=== PATIENT | male | born 1985 | race Caucasian/White ===

== ENCOUNTER → 2018-03-19 14:47 | Outpatient (CLI) | payer OTHER, SELFPAY ==
--- NOTE | 2018-03-19 | DI.CT.S_ITS ---
PROCEDURE: CT ABDOMEN WO CON INDICATIONS: 32-year-old male with increased abdominal pain, and possible hernia. TECHNIQUE: After the administration of oral contrast, 5 mm thick sections acquired from the diaphragms to the iliac crests. 5 mm coronal and sagittal reformats were then performed. For radiation dose reduction, the following was used: automated exposure control, adjustment of mA and/or kV according to patient size. COMPARISON: [facility], CT, ABDOMEN/PELVIS WITH CONTRAST, 07/04/2010, 10:54. FINDINGS: Skin marker denotes the site of clinical concern. Image quality: Excellent. Lung bases: Lung bases are clear. Heart size is normal. Solid organs: Liver is normal in size, with mild diffuse fatty infiltration. Gallbladder wall thickness is normal. Pancreas is normal in contours. Spleen is normal in size. No adrenal nodules. Both kidneys are normal in size, without hydronephrosis or nephrolithiasis. Peritoneum and bowel: Bowel loops demonstrate normal wall thickness and caliber. No free fluid or air. Nodes and vessels: No retroperitoneal or mesenteric adenopathy by size criteria. Aorta and inferior vena cava are normal in size. Bones: No suspicious bony lesions. No vertebral body compression fractures. Miscellaneous: No ventral hernias at the site of clinical concern in the right lower quadrant abdominal wall. Small fat-containing periumbilical ventral hernia has slightly increased in size since 2009. IMPRESSION: 1. No imaging explanation for right lower quadrant abdominal wall pain. 2. Nearby fat-containing periumbilical ventral hernia has slightly enlarged. 3. Mild diffuse fatty infiltration of the liver. Dictated by: John Lincoln M.D. on 03/19/2018 at 15:44 Approved by: John Lincoln M.D. on 03/19/2018 at 15:49
== END ==
PROVIDERS: Family Provider Orthopaedic Surgery; PCP Family Medicine; Visit Provider Family Medicine
DX: R10.9 Unspecified abdominal pain (principal); K43.9 Ventral hernia without obstruction or gangrene
CPT/HCPCS: 74150

== ENCOUNTER 2018-06-03 09:01 | Day surgery (SDC) | payer OTHER, BC, SELFPAY ==
[2018-05-19 14:23] VITALS: BMI 35.1
[2018-06-03] VITALS (12 sets, daily range): BP systolic 110–127; BP diastolic 67–89; PULSE 68–80; RESP 12–18; TEMP 36.2–36.8; O2SAT 9–100; BMI 35.1
--- NOTE | 2018-06-03 | PATH_ITS ---
[facility] Accession Number: [id number] . 01 Material submitted: . FATTY MASS ABDOMINAL WALL . 02 Diagnosis: Mass, Abdominal Wall: Lipoma, negative for atypia. [facility]/06/07/2018 . 02 Electronically signed: . Jerson Riley MD, Pathologist NPI- [id number] . 01 Gross description: . Received one formalin-filled container, labeled with the patient's name and labeled fatty mass abdominal are two yellow-carlton, rough, irregularly shaped portions of soft tissue which aggregate to 4.0 x 3.0 x 1.5 cm. Inked blue. Four communications representative sections are submitted in two cassettes. ([facility] [place][id number]) /MRV . 02 Pathologist provided ICD-10: D17.1 . 02 CPT . 389424 Performed at: 01 [facility] [address], [place], [place] [id number] MD Lazaro Nguyen MD Phone: [phone] Performed at: [address] [facility] [address] [place], [place] [id number] MD Brandon Padilla MD Phone: [phone]
--- NOTE | 2018-06-03 11:50 | SUR.PREOP ---
blood sugar with finger stick was [address] bullock
--- NOTE | 2018-06-03 13:30 | PM.HP.1 ---
History of Present Illness Date Patient Seen: 06/03/18 Time Patient Seen: 13:30 Chief complaint: [id number] REPAIR HERNIA REMOVE MASS Narrative: Patient is a 32-year-old who has an umbilical hernia that is tender and he would like to have it repaired Patient History Medical History Tension headache (Acute) Umbilical hernia (Acute) ADHD (attention deficit hyperactivity disorder) (Chronic) Bloating (Chronic 2014) Chronic back pain (Chronic 2010) Chronic headaches (Chronic 2015) Frequent urination (Chronic) Migraines (Chronic) Prostatitis (Chronic 2015) Tinnitus (Chronic) Chicken pox (Resolved) MRSA infection (Resolved) Surgical History Anesthesia (Resolved) Status post knee surgery (Resolved 04/2011) Status post knee surgery (Resolved 07/2013) Status post knee surgery (Resolved 2015) Family & Social History Family History: Reviewed 06/03/18 by Rafael Borrego MD Social History: household members spouse,children Tobacco & Substance use: Smoking Status Never smoker alcohol intake never Meds Home Medications Medication Instructions Recorded Confirmed Type epinephrine 0.3 mg IM SEE INSTRUCTIONS #4 syr 03/05/17 04/28/18 Rx acyclovir 800 mg tablet 800 mg PO Q6H #30 tab 04/28/18 06/03/18 Rx tamsulosin 0.4 mg capsule 0.4 mg PO DAILY #90 cap 04/28/18 06/03/18 Rx Allergies Allergy/AdvReac Type Severity Reaction Status Date / Time bee venom protein (honey bee) Allergy Severe anapylactic Verified 06/03/18 11:33 [BEE VENOM PROTEIN (HONEY BEE)] Review of Systems Review of Systems All systems reviewed & are unremarkable except as noted in HPI and below Exam Vital Signs (past 8 hours): - 06/03/18 11:35 Temperature 97.2 F L Pulse Rate 69 Respiratory Rate 16 Blood Pressure 127/83 Pulse Oximetry 100 Oxygen Delivery Method Room Air Narrative Exam Narrative: Operative little overweight no apparent distress lungs are clear to auscultation no rales or rhonchi heart regular rate and rhythm no murmur gallop abdomen is protuberant soft nontender except when I attempt to reduce his umbilical hernia he does have some tenderness. No redness. Alert and oriented x3. Assessment & Plan Plan: Assessment/Plan Narrative: Patient with umbilical hernia for repair. I suspect the defect is quite small and I think it unlikely I will be able to use mesh but I talked to him about it. Risks of bleeding infection and recurrence were discussed. Restrictions after the procedure discussed. All questions answered.
[2018-06-03] MEDS: LACTATED RINGERS 1,000 ML 42 ML IV (13:46)
[2018-06-03] MEDS: CEFAZOLIN 2 GM/100 ML FROZ.PIGGY IV (14:10)
--- NOTE | 2018-06-03 14:27 | SUR.OPER ---
Supine on padded OR bed, head on pillow, arms secured on padded arm boards at <90 degrees abduction, legs uncrossed, safety belt at thigh, tape over blanket over lower legs.
[2018-06-03] MEDS: BUPIVACAINE 0.5% (PF) VIAL 30 ML INJ (14:35)
--- NOTE | 2018-06-03 15:06 | PM.OP.1 ---
Operative Date/Time/Diagnoses Date of procedure: 06/03/18 Time of procedure: 15:06 Pre-op diagnosis: Umbilical hernia reducible without incarceration or strangulation. Abdominal wall mass subcutaneous right lower abdomen Post-op diagnosis: same Procedure & Clinicians Procedure: Repair of hernia at the umbilicus. Excision of mass. Mass measured 1 cm x 1 cm. Same procedure as scheduled: Yes Indications: Symptomatic hernia and mass Surgeon: Rafael Melendez Yes if Unassisted: Yes Anesthesia Type: General Operative Notes Findings: Very small defect. Mass appeared to be fatty Closure Type: primary Specimen(s): other (Mass) Implants & Drains: None Estimated Blood Loss (mL): 10 Blood products transfused: none Procedure in detail: Patient was placed supine on the operating room table underwent general endotracheal anesthesia. He was prepped and draped in usual fashion. Local anesthetic was infiltrated and a curvilinear incision made beneath the umbilicus. It was carried down level of fascia. The fascia was cleared circumferentially of the hernia sac which was removed. It contained preperitoneal fat. A single [id number] 0 Tycron suture was used to close the defect. Subcu was reapproximated with 3 0 Polysorb and skin closed running for Polysorb subcuticular stitches and Steri-Strips. The defect was felt to be too small to place mesh under without expanding it. Attention was turned to the small mass in the right lower abdomen which had been marked preoperatively. Transverse incision was made lying over it and it was carried down to the subcu. All the subcu tissues were removed in that region. Hemostasis was achieved with cautery. The skin was reapproximated with 4 0 Polysorb. This Steri-Strips were applied. Dressings were applied. The patient was awakened taken recovery room good condition. Complications: none Condition: stable Disposition: PACU Plan for aftercare: Follow up with the office
== END 2018-06-03 16:38 | disposition home or self-care (01) ==
PROVIDERS: Family Provider Orthopaedic Surgery; PCP Family Medicine; Visit Provider Specialist
PROC: (CPT 49585; principal; 2018-06-03 10:15)
DX: K42.9 Umbilical hernia without obstruction or gangrene (principal); D17.1 Benign lipomatous neoplasm of skin and subcutaneous tissue of trunk
CPT/HCPCS: 49585; 22902; J0690; J1100; J1170; J2405; J2704

== ENCOUNTER → 2018-08-18 08:36 | Outpatient (CLI) | payer OTHER, BC, SELFPAY ==
--- NOTE | 2018-08-18 | DI.CT.S_ITS ---
PROCEDURE: CT ABDOMEN WO CON INDICATIONS: ABDOMINAL PAIN TECHNIQUE: After the administration of oral contrast, 5 mm thick sections acquired from the diaphragms to the iliac crests. 5 mm coronal and sagittal reformats were then performed. For radiation dose reduction, the following was used: automated exposure control, adjustment of mA and/or kV according to patient size. COMPARISON: [facility], CT, CT ABDOMEN WO CON, 03/19/2018, 14:50. FINDINGS: Image quality: Excellent. Lung bases: Lung bases are clear. Heart size is normal. Solid organs: Liver is normal in size. Gallbladder grossly unremarkable. Pancreas is normal in contours. Spleen is normal in size. No adrenal nodules. Both kidneys are normal in size, without hydronephrosis or nephrolithiasis. Peritoneum and bowel: Bowel loops demonstrate normal wall thickness and caliber. No free fluid or air. Nodes and vessels: No retroperitoneal or mesenteric adenopathy by size criteria. Aorta and inferior vena cava are normal in size. Bones: No suspicious bony lesions. No vertebral body compression fractures. No definite recurrent umbilical hernia is identified. There is mild stranding in the right paramedian anterior abdominal subcutaneous fat image 67 series 2, nonspecific. IMPRESSION: No recurrent hernia identified. Mild stranding in the right paramedian subcutaneous fat of the anterior abdominal wall in keeping with nonspecific inflammation. Please correlate clinically Dictated by: Herson Wahl M.D. on 08/18/2018 at 10:36 Approved by: Herson Wahl M.D. on 08/18/2018 at 10:40
== END ==
PROVIDERS: PCP Family Medicine; Visit Provider Family Medicine
DX: R10.9 Unspecified abdominal pain (principal)
CPT/HCPCS: 74150

== ENCOUNTER → 2018-12-09 15:38 | Outpatient (CLI) | payer OTHER, SELFPAY ==
--- NOTE | 2018-12-09 | DI.MRI.S_ITS ---
PROCEDURE: MR KNEE RT WO CON INDICATIONS: RIGHT KNEE PAIN TECHNIQUE: Noncontrast sagittal PD fast spin echo and T2 fast spin echo with fat saturation, sagittal 3-D FLASH with fat saturation; coronal T1 spin echo and PD fast spin echo with fat saturation, and axial PD fast spin echo with fat saturation through the knee. COMPARISON: [facility], MR, KNEE WITH CONTRAST, 10/10/2016, 14:19. [facility], CR, KNEE SERIES RT, 01/12/2017, 14:18. FINDINGS: Image quality: Excellent. Menisci: There is large horizontal tear involving posterior horn and body of the medial meniscus. There is a cluster of parameniscal cysts adjacent to the medial meniscus. There is discoid lateral meniscus which is intact. The meniscal root ligaments appear intact. Cruciate ligaments: The anterior and posterior cruciate ligaments appear intact. Medial structures: The medial collateral ligament appears intact. The posterior oblique ligament, semimembranosus tendon insertions, oblique popliteal ligament, and meniscocapsular junction appear intact. Visualized portions of the pes anserinus tendons appear normal. No abnormal bursal fluid. Lateral structures: The lateral collateral ligament, long and short heads of the biceps femoris tendon appear intact. The popliteus tendon appears normal; the popliteofibular ligament appears intact. The posterosuperior and anteroinferior popliteomeniscal fascicles appear intact. The arcuate and fabellofibular ligaments appear intact, on either side of the lateral inferior geniculate artery. Iliotibial band appears normal. Anterior structures: The quadriceps and patellar tendons appear intact. Patellar alignment is normal. No femoral trochlear dysplasia or ventral trochlear prominence. No edema in the infrapatellar fat pad. Bones and cartilage: No bone marrow contusions or fractures. There is mild cartilage thinning and fibrillation of the medial femorotibial compartment. Joint space: There is physiologic knee joint fluid. No Clemente's cyst. Normal appearing synovial plicae are incidentally noted. IMPRESSION: 1. Large horizontal tear of the posterior horn and body of the medial meniscus with a cluster of parameniscal cysts in the medial aspect of the knee joint. 2. Discoid meniscus. 3. Mild cartilage thinning and fibrillation of the medial femorotibial compartment. Dictated by: Jeromy Banegas M.D. on 12/09/2018 at 16:27 Approved by: Jeromy Banegas M.D. on 12/09/2018 at 17:46
== END ==
PROVIDERS: PCP Family Medicine; Visit Provider Family Medicine
DX: M25.561 Pain in right knee (principal); S83.241A Other tear of medial meniscus, current injury, right knee, initial encounter
CPT/HCPCS: 73721

== ENCOUNTER → 2019-01-07 10:45 | Outpatient (CLI) | payer OTHER, SELFPAY | PROVIDERS: PCP Family Medicine; Visit Provider Physician Assistant | DX: R68.89 Other general symptoms and signs (principal) | CPT/HCPCS: 87400 ==

== ENCOUNTER → 2019-08-16 16:45 | Outpatient (CLI) | payer OTHER, SELFPAY ==
--- NOTE | 2019-08-16 | DI.RAD.S_ITS ---
PROCEDURE: XR KNEE RT 1TO2V INDICATIONS: MJL NARROWING TECHNIQUE: 2 views of the knee were acquired. COMPARISON: [facility], [facility]LA, XR KNEE STANDING BI, 08/16/2019, 17:04. [facility], [facility], KNEE 3V LEFT, 11/20/2010, 21:51. FINDINGS: Bones: No fractures or dislocations. No suspicious bony lesions. Mild right knee joint degeneration. Soft tissues: No joint effusion. No suspicious soft tissue calcifications. IMPRESSION: Mild right knee joint degeneration. Dictated by: Herson Wahl M.D. on 08/16/2019 at 17:37 Approved by: Herson Wahl M.D. on 08/16/2019 at 17:38
--- NOTE | 2019-08-16 | DI.RAD.S_ITS ---
PROCEDURE: XR KNEE STANDING BI INDICATIONS: MJL NARROWING TECHNIQUE: 2 views of the right knee, and 2 views of the left knee. COMPARISON: [facility], , KNEE 3V LEFT, 11/20/2010, 21:51. FINDINGS: Bones: No acute fractures or dislocations. Mild bilateral medial joint space narrowing IMPRESSION: Mild bilateral knee joint degeneration Dictated by: Herson Wahl M.D. on 08/16/2019 at 17:35 Approved by: Herson Wahl M.D. on 08/16/2019 at 17:37
== END ==
PROVIDERS: PCP Family Medicine
DX: M17.0 Bilateral primary osteoarthritis of knee (principal)
CPT/HCPCS: 73560; 73565

== ENCOUNTER → 2019-10-04 10:34 | Outpatient (CLI) | payer OTHER, SELFPAY ==
--- NOTE | 2019-10-04 | DI.MRI.S_ITS ---
PROCEDURE: MR KNEE RT W CON INDICATIONS: Medial meniscus tear TECHNIQUE: After the administration of 50 mL of dilute intra-articular Gadolinium contrast, sagittal T1 spin echo with fat saturation and PD fast spin echo with fat saturation, coronal T1 spin echo with and without fat saturation, coronal T2 fast spin echo with fat saturation, axial PD fast spin echo with fat saturation through the knee. COMPARISON: [facility], MR, KNEE WITH CONTRAST, 10/10/2016, 14:19. FINDINGS: Image quality: Diagnostic. Menisci: There is an inferior flap tear in the body and posterior horn of the medial meniscus involving the inferior articular surface. There is slight associated peripheral extrusion into the medial gutter inferiorly. There is also a horizontally oriented longitudinal component in the posterior horn involving the inferior articular surface with intrasubstance extension into the meniscal root ligament without rupture. A small radial tear is also demonstrated along the free edge in the body and posterior horn. The lateral meniscus appears intact. Cruciate ligaments: The anterior and posterior cruciate ligaments appear intact. Medial structures: The medial collateral ligament appears intact. The semimembranosus tendon insertions and meniscocapsular junction appear intact. Visualized portions of the pes anserinus tendons appear intact without associated bursal fluid collections. Lateral structures: The lateral collateral ligament, long and short heads of the biceps femoris tendon appear intact. The popliteus tendon appears intact. Iliotibial band appears normal. Anterior structures: The quadriceps and patellar tendons appear intact. There is mild tendinopathy in the proximal patellar tendon. Patellar alignment is normal. No femoral trochlear dysplasia or ventral trochlear prominence. No edema in the infrapatellar fat pad. Bone and cartilage: No bone marrow contusions or fractures. There is mild to moderate cartilage thinning within the medial compartment with chondral fissuring peripherally associated with subchondral edema. In the lateral compartment articular cartilage appears preserved in thickness. In the patellofemoral compartment, there is mild cartilage thinning with chondral fissuring inferiorly. Joint space: No Clemente's cyst. Normal appearing synovial plicae are incidentally noted. No intra-articular bodies. IMPRESSION: 1. Complex tearing of the medial meniscus involving the body and posterior horn as described. 2. Cartilage degeneration within the medial and patellofemoral compartments as described. Dictated by: Lazaro Durham M.D. on 10/04/2019 at 13:53 Approved by: Lazaro Durham M.D. on 10/04/2019 at 14:05
--- NOTE | 2019-10-04 | DI.RAD.S_ITS ---
PROCEDURE: FL KNEE INJECTION MR/CT RT INDICATIONS: Medial meniscus tear TECHNIQUE: The indications, alternatives, benefits, risks, and complications of the procedure were explained to the patient. Written informed consent was obtained and placed in the chart. The knee was examined fluoroscopically, and a site chosen for knee joint injection. The skin was prepped and draped in a sterile fashion, and 1% Lidocaine infiltrated from the skin down to the articular surface. A hypodermic needle was then introduced into the joint and iodinated contrast media was instilled to confirm the intra-articular needle tip placement. This was followed by approximately 50 mL dilute solution of a gadolinium containing MR contrast agent. The needle was removed and a bandage was applied. An Obdulio wrap was then applied around the knee joint to keep the contrast from collecting in the suprapatellar recess. The patient experienced no complications throughout the procedure and left the fluoroscopic suite in no apparent distress. FINDINGS: Single fluoroscopic spot image demonstrates intra-articular location to injected iodinated contrast. IMPRESSION: Successful fluoroscopically guided administration of dilute Gadolinium solution into the knee joint for MR arthrogram. Dictated by: Jeromy Banegas M.D. on 10/04/2019 at 12:15 Approved by: Jeromy Banegas M.D. on 10/04/2019 at 12:17
== END ==
PROVIDERS: PCP Family Medicine; Visit Provider Orthopaedic Surgery
DX: S83.231A Complex tear of medial meniscus, current injury, right knee, initial encounter (principal); X58.XXXA Exposure to other specified factors, initial encounter
CPT/HCPCS: 27369; 73722; 77002

== ENCOUNTER → 2020-07-19 08:06 | Outpatient (CLI) | payer OTHER, SELFPAY ==
--- NOTE | 2020-07-19 | DI.RAD.S_ITS ---
PROCEDURE: FL KNEE INJECTION MR/CT RT INDICATIONS: bucket-handle tear COMPARISON: [facility], MR, MR KNEE RT W CON, 10/04/2019, 11:20. TECHNIQUE: The indications, alternatives, benefits, risks, and complications of the procedure were explained to the patient. Written informed consent was obtained and placed in the chart. The knee was examined fluoroscopically, and a site chosen for knee joint injection. The skin was prepped and draped in a sterile fashion, and 1% Lidocaine infiltrated from the skin down to the articular surface. A hypodermic needle was then introduced into the joint and iodinated contrast media was instilled to confirm the intra-articular needle tip placement. This was followed by approximately 50 mL dilute solution of a gadolinium containing MR contrast agent. The needle was removed and a bandage was applied. An Obdulio wrap was then applied around the knee joint to keep the contrast from collecting in the suprapatellar recess. The patient experienced no complications throughout the procedure and left the fluoroscopic suite in no apparent distress. FINDINGS: Single fluoroscopic spot image demonstrates intra-articular location to injected iodinated contrast. IMPRESSION: Successful fluoroscopically guided administration of dilute Gadolinium solution into the knee joint for MR arthrogram. Dictated by: Jeromy Banegas M.D. on 07/19/2020 at 11:18 Approved by: Jeromy Banegas M.D. on 07/19/2020 at 11:18
--- NOTE | 2020-07-19 | DI.MRI.S_ITS ---
PROCEDURE: MR KNEE RT W CON INDICATIONS: BUCKET-HANDLE TEAR TECHNIQUE: After the administration of 50 mL of dilute intra-articular Gadolinium contrast, sagittal T1 spin echo with fat saturation and PD fast spin echo with fat saturation, coronal T1 spin echo with and without fat saturation, coronal T2 fast spin echo with fat saturation, axial PD fast spin echo with fat saturation through the knee. COMPARISON: [facility], MR, MR KNEE RT W CON, 10/04/2019, 11:20. FINDINGS: Image quality: Excellent. Menisci: There is suggestion of prior partial medial meniscectomy with slightly truncated appearance of the medial meniscus. No definite recurrent tear is seen on the current study within medial meniscal remanent. Lateral meniscus is intact. The meniscal root ligaments appear intact. Cruciate ligaments: The anterior and posterior cruciate ligaments appear intact. Medial structures: The medial collateral ligament appears intact. The posterior oblique ligament, semimembranosus tendon insertions, oblique popliteal ligament, and meniscocapsular junction appear intact. Visualized portions of the pes anserinus tendons appear normal. No abnormal bursal fluid. Lateral structures: The lateral collateral ligament, long and short heads of the biceps femoris tendon appear intact. The popliteus tendon appears normal; the popliteofibular ligament appears intact. The posterosuperior and anteroinferior popliteomeniscal fascicles appear intact. The arcuate and fabellofibular ligaments appear intact around the lateral inferior geniculate artery. Iliotibial band appears normal. Anterior structures: The quadriceps and patellar tendons appear intact. Patellar alignment is normal. No femoral trochlear dysplasia or ventral trochlear prominence. No edema in the infrapatellar fat pad. Bone and cartilage: There is extensive marrow edema involving weight-bearing portion of medial tibial plateau with internal linear hypointense signal concerning for subchondral insufficiency fracture. Mild edema in the adjacent posterior weight-bearing portion of lateral femoral condyle is also seen concerning for contusion. Articulating cartilages in lateral femoral tibial compartment and patellofemoral compartment are grossly intact. Joint space: No Clemente's cyst. Normal appearing synovial plicae are incidentally noted. No intra-articular bodies. IMPRESSION: 1. Interval development of likely subchondral insufficiency fracture involving weight-bearing portion of medial tibial plateau. Mild bony contusion is seen involving posterior weight-bearing portion of medial femoral condyle. No other area of marrow signal abnormality. 2. Suggestion of chronic medial meniscal tear versus prior partial meniscectomy. Overall medial meniscal appearance is not significantly changed from prior study without evidence of recurrent tear. Lateral meniscus is intact. 3. Cruciate ligaments are intact. Dictated by: Darron Cason M.D. on 07/19/2020 at 11:11 Approved by: Darron Cason M.D. on 07/19/2020 at 13:24
== END ==
PROVIDERS: PCP Family Medicine; Referring Provider Orthopaedic Surgery; Visit Provider Orthopaedic Surgery
DX: S83.211D Bucket-handle tear of medial meniscus, current injury, right knee, subsequent encounter (principal); Q68.6 Discoid meniscus
CPT/HCPCS: 27369; 73722; 77002

== ENCOUNTER → 2020-09-05 09:24 | Outpatient (CLI) | payer BC, SELFPAY ==
[2020-09-05 11:11] LABS: Add Manual Diff / Slide Review NO; Basophils Absolute Auto 0 /uL (0-100); Basophils Percent Auto 0.6 % (0-2); Eosinophils Absolute Auto 200 /uL (0-450); Eosinophils Percent Auto 2.4 % (2-4); Hematocrit 47.9 % (41-53); Hemoglobin 16.2 g/dL (13.5-17.5); Lymphocytes Absolute Auto 2400 /uL (1100-4500); Lymphocytes Percent Auto 30.3 % (25-40); Mean Corpuscular HGB Conc 33.7 % (30-36); Mean Corpuscular Hemoglobin 27.9 PG (26-34); Mean Corpuscular Volume 82.7 fL (80-100); Monocytes Absolute Auto 400 /uL (0-900); Monocytes Percent Auto 5.3 % (3-14); Neutrophils Absolute Auto 5000 /uL (1500-7000); Neutrophils Percent Auto 61.4 % (50-75); Platelet Count 287 X10^3/uL (150-400); Red Cell Distribution Width 13.1 % (11.6-14.8); White Blood Cell Count 8.1 X10^3/uL (4.5-11.0)
[2020-09-05 11:25] LABS: Alanine Aminotransferase 41 IU/L (<50); Albumin 4.6 g/dL (3.5-5.0); Albumin Globulin Ratio 1.4 (1.0-2.8); Alkaline Phosphatase 66 U/L (38-126); Aspartate Aminotransferase 37 IU/L (17-59); BUN Creatinine Ratio 28.1 (6-22); Bilirubin Total 0.4 mg/dL (0.2-1.3); Blood Urea Nitrogen 25 mg/dL (9-20); Calcium 9.4 mg/dL (8.4-10.2); Carbon Dioxide 23 mmol/L (22-32); Chloride 105 mmol/L (98-107); Cholesterol 254 mg/dL (140-199); Estimated Glomerular Filt Rate > 60.0 mL/min (>60); Globulin 3.4 g/dL (1.7-4.1); Glucose 96 mg/dL (70-100); HDL Cholesterol 45 mg/dL (40-60); HEMOLYSIS < 15 (0-50); LDL Cholesterol Calculated 177 mg/dL (<100); Lactate Dehydrogenase 409 U/L (313-618); Potassium 3.8 mmol/L (3.4-5.1); Sodium 139 mmol/L (137-145); Triglycerides 158 mg/dL (35-150)
[2020-09-05 11:26] LABS: C-Reactive Protein Quant < 0.5 mg/dL (<1.0)
[2020-09-05 11:45] LABS: Erythrocyte Sedimentation Rate 1 MM/HR (0-15)
[2020-09-05 12:21] LABS: Thyroid Stimulating Hormone 4.41 uIU/mL (0.47-4.68)
== END ==
PROVIDERS: PCP Family Medicine; Referring Provider Family Medicine; Visit Provider Family Medicine
DX: I10 Essential (primary) hypertension (principal); M25.569 Pain in unspecified knee; M84.30XA Stress fracture, unspecified site, initial encounter for fracture
CPT/HCPCS: 36415; 80053; 80061; 83615; 84443; 85025; 85651; 86140

== ENCOUNTER → 2021-04-12 07:42 | Outpatient (CLI) | payer OTHER, SELFPAY ==
--- NOTE | 2021-04-12 | DI.MRI.S_ITS ---
PROCEDURE: MR KNEE RT W CON INDICATIONS: Displaced bicondylar fracture of right tibia, subs TECHNIQUE: After the administration of 50 mL of dilute intra-articular Gadolinium contrast, sagittal T1 spin echo with fat saturation and PD fast spin echo with fat saturation, coronal T1 spin echo with and without fat saturation, coronal T2 fast spin echo with fat saturation, axial PD fast spin echo with fat saturation through the knee. COMPARISON: [facility], MR, MR KNEE RT W CON, 07/19/2020, 8:50. FINDINGS: Image quality: Excellent. Menisci: There is complex tearing of the medial meniscus redemonstrated including irregular tearing along the inferior articular surface in the body as well as fraying along the superior articular surface. Within the posterior horn, there is a horizontally oriented longitudinal tear involving the inferior articular surface. There is also fraying and irregular tearing along the superior articular surface in the posterior horn. An associated parameniscal cyst is demonstrated in the posterosuperior aspect of the medial meniscus measuring up to approximately 0.6 cm. Posterior to the meniscal root ligament, there is also a lobulated cystic structure measuring up to 1.0 cm redemonstrated which may represent a parameniscal cyst, ganglion cyst, or loculated joint recess. The lateral meniscus appears intact. The meniscal root ligaments appear intact. Cruciate ligaments: The anterior and posterior cruciate ligaments appear intact. Medial structures: The medial collateral ligament appears intact. The semimembranosus tendon insertions and meniscocapsular junction appear intact. Visualized portions of the pes anserinus tendons appear intact without associated bursal fluid collections. Lateral structures: The lateral collateral ligament, long and short heads of the biceps femoris tendon appear intact. The popliteus tendon appears intact. Iliotibial band appears normal. Anterior structures: The quadriceps and patellar tendons appear intact. Patellar alignment is normal. No femoral trochlear dysplasia or ventral trochlear prominence. No edema in the infrapatellar fat pad. Bone and cartilage: No acute bone marrow contusions or fractures. There is decreased bone marrow edema within the medial proximal tibia consistent with healing of the previously visualized impaction fracture. No residual fracture line visualized. There is mild to moderate cartilage thinning within the medial compartment with associated mild chondral fissuring and mild subchondral edema along the medial tibial plateau. The articular cartilage appears preserved in thickness within the lateral compartment. There is mild cartilage thinning in the patellofemoral compartment with mild superficial chondral irregularity. Joint space: No Clemente's cyst. Normal appearing synovial plicae are incidentally noted. No definite intra-articular bodies. There is nondependent gas demonstrated within the joint space. IMPRESSION: 1. Complex tearing of the medial meniscus redemonstrated involving the body and posterior horn with a new associated parameniscal cyst. 2. Interval healing of the medial tibial fracture and bone contusion seen on the prior study with minimal residual marrow edema. 3. Mild chondral degeneration in the medial compartment. Dictated by: Lazaro Durham M.D. on 04/12/2021 at 12:05 Approved by: Lazaro Durham M.D. on 04/12/2021 at 12:28
--- NOTE | 2021-04-12 | DI.RAD.S_ITS ---
PROCEDURE: FL KNEE INJECTION MR/CT RT INDICATIONS: Displaced bicondylar fracture of right tibia, subs COMPARISON: [facility], , [place] KNEE INJECTION MR/CT RT, 07/19/2020, 8:39. [facility], [place] KNEE INJECTION MR/CT RT, 10/04/2019, 11:08. TECHNIQUE: The indications, alternatives, benefits, risks, and complications of the procedure were explained to the patient. Written informed consent was obtained and placed in the chart. The knee was examined fluoroscopically, and a site chosen for knee joint injection. The skin was prepped and draped in a sterile fashion, and 1% Lidocaine infiltrated from the skin down to the articular surface. A hypodermic needle was then introduced into the joint and iodinated contrast media was instilled to confirm the intra-articular needle tip placement. This was followed by approximately 50 mL dilute solution of a gadolinium containing MR contrast agent. The needle was removed and a bandage was applied. An Obdulio wrap was then applied around the knee joint to keep the contrast from collecting in the suprapatellar recess. The patient experienced no complications throughout the procedure and left the fluoroscopic suite in no apparent distress. FINDINGS: Single fluoroscopic spot image demonstrates intra-articular location to injected iodinated contrast. IMPRESSION: Successful fluoroscopically guided administration of dilute Gadolinium solution into the knee joint for MR arthrogram. Dictated by: Matt Babcock M.D. on 04/12/2021 at 14:23 Approved by: Matt Babcock M.D. on 04/12/2021 at 14:23
== END ==
PROVIDERS: PCP Family Medicine; Referring Provider Orthopaedic Surgery; Visit Provider Orthopaedic Surgery
DX: S82.141D Displaced bicondylar fracture of right tibia, subsequent encounter for closed fracture with routine healing (principal); S83.241A Other tear of medial meniscus, current injury, right knee, initial encounter
CPT/HCPCS: 27369; 73722; 77002

== ENCOUNTER → 2021-04-19 09:31 | Outpatient (CLI) | payer BC, SELFPAY ==
--- NOTE | 2021-04-19 | DI.RAD.S_ITS ---
PROCEDURE: XR HAND RT MIN 3V INDICATIONS: pain after trauma TECHNIQUE: 3 views of the hand(s) acquired. COMPARISON: None. FINDINGS: Bones: No fractures or dislocations. Carpal bones are normally aligned. No suspicious bony lesions. Soft tissues: No suspicious soft tissue calcifications. IMPRESSION: No trauma found. Dictated by: Matt Babcock M.D. on 04/19/2021 at 10:27 Approved by: Matt Babcock M.D. on 04/19/2021 at 10:27
== END ==
PROVIDERS: PCP Family Medicine; Referring Provider Family Medicine; Visit Provider Family Medicine
DX: M79.641 Pain in right hand (principal)
CPT/HCPCS: 73130

== ENCOUNTER → 2021-08-01 13:10 | Outpatient (ROUT) | payer BC, SELFPAY ==
[2021-08-01 13:58] LABS: COVID19 -Nasal RAPID Negative (Negative)
== END ==
PROVIDERS: PCP Family Medicine; Visit Provider Family Medicine
DX: Z20.822 Contact with and (suspected) exposure to COVID-19 (principal)
CPT/HCPCS: 87635

== ENCOUNTER → 2021-09-26 12:03 | Outpatient (ROUT) | payer BC, SELFPAY ==
[2021-09-26 13:05] LABS: COVID19 -Nasal RAPID Negative (Negative)
== END ==
PROVIDERS: PCP Family Medicine; Visit Provider Family Medicine
DX: Z20.822 Contact with and (suspected) exposure to COVID-19 (principal)
CPT/HCPCS: 87635

== ENCOUNTER → 2021-10-18 14:36 | Outpatient (CLI) | payer BC, SELFPAY | PROVIDERS: PCP Family Medicine; Referring Provider Family Medicine; Visit Provider Family Medicine | DX: Z01.84 Encounter for antibody response examination (principal) | CPT/HCPCS: 36415; 86769 ==

== ENCOUNTER → 2022-05-22 13:17 | Outpatient (CLI) | payer OTHER, SELFPAY ==
--- NOTE | 2022-05-22 | DI.CT.S_ITS ---
PROCEDURE: CT KNEE RIGHT WITHOUT CON INDICATIONS: Post surgical status right knee TECHNIQUE: Noncontrast 1-1.5 mm axial sections acquired from the mid-patella to the proximal tibia, with coronal and sagittal reformats. COMPARISON: Right knee MRI 04/12/2021 and 07/19/2020. FINDINGS: Image quality: Excellent. Bones: There is suggestion of prior proximal tibial shaft osteotomy with graft material seen at osteotomy site and fixation hardware in place. Alignment of knee is anatomic. No evidence of hardware loosening or failure. No acute fracture or dislocation is seen. Moderate medial femoral tibial compartment osteoarthritic changes are seen with joint space narrowing, subchondral sclerosis and marginal osteophyte formation. Mild lateral femoral tibial compartment and patellofemoral compartment osteoarthritic changes also seen. No suspicious intraosseous lesion. Soft tissues: No significant joint effusion is seen. No intra-articular loose bodies. No abnormal soft tissue calcifications. Distal quadriceps tendon and patellar tendon are grossly intact. IMPRESSION: 1. Post osteotomy changes in proximal tibial shaft with surgical hardware in place. Right knee alignment is anatomic. No acute fracture or dislocation. No gross hardware complication. 2. [id number] tricompartmental osteoarthritis more prominent in medial femoral tibial compartment. 3. No significant joint effusion. No abnormal soft tissue calcifications. Dictated by: Darron Cason M.D. on 05/22/2022 at 15:01 Approved by: Darron Csaon M.D. on 05/22/2022 at 15:04
== END ==
PROVIDERS: PCP Family Medicine; Referring Provider Orthopaedic Surgery; Visit Provider Orthopaedic Surgery
DX: Z98.890 Other specified postprocedural states (principal); M17.11 Unilateral primary osteoarthritis, right knee
CPT/HCPCS: 73700

== ENCOUNTER → 2022-08-29 11:11 | Outpatient (CLI) | payer OTHER, SELFPAY ==
[2022-08-29 16:59] LABS: Vitamin D 25 Hydroxy (D3) 49.3 ng/mL (30.0-100.0)
== END ==
PROVIDERS: PCP Family Medicine; Referring Provider Orthopaedic Surgery; Visit Provider Orthopaedic Surgery
DX: Z98.890 Other specified postprocedural states (principal)
CPT/HCPCS: 36415; 82306

== ENCOUNTER → 2022-12-03 14:07 | Outpatient (CLI) | payer OTHER, SELFPAY ==
--- NOTE | 2022-12-03 14:08 | DI.RAD.S_ITS ---
PROCEDURE: XR LUMBAR SPINE 2-3V INDICATIONS: Acute low back pain TECHNIQUE: 3 views of the lumbar spine were acquired. COMPARISON: [facility], , L-SPINE 2-3 VIEWS, 03/09/2009, 17:01. FINDINGS: Bones: 5 [id number] vertebrae are present. Mild leftward curvature. No vertebral compression deformities. Mild disc height loss at L4-5 and L5-S1. Soft tissues: Overlying bowel gas pattern is normal. No suspicious soft tissue calcifications. IMPRESSION: 1. No acute, displaced fracture or traumatic subluxation. 2. Mild degenerative disc disease at L4-5 and L5-S1. Dictated by: Gene Guerrier M.D. on 12/03/2022 at 16:20 Approved by: Gene Guerrier M.D. on 12/03/2022 at 16:21
== END ==
PROVIDERS: PCP Family Medicine; Referring Provider Physician Assistant; Visit Provider Physician Assistant
DX: M51.36 Other intervertebral disc degeneration, lumbar region (principal); M51.37 Other intervertebral disc degeneration, lumbosacral region; M54.50 Low back pain, unspecified
CPT/HCPCS: 72100

== ENCOUNTER 2022-12-12 12:14 | Emergency (ER) | payer OTHER, SELFPAY ==
[2022-12-12 12:45] VITALS: BP 139/96; PULSE 97; RESP 16; TEMP 36.2; O2SAT 99; BMI 38.0
--- NOTE | 2022-12-12 16:54 | ED_ITS ---
HPI - Back Pain/Injury <Azael Sharma PA-C - Last Filed: 12/12/22 19:49> General Chief Complaint: Back Pain/Injury Stated Complaint: Back pain/spasms, chest pain, left leg numbness Time Seen by Provider: 12/12/22 12:33 Source: patient History of Present Illness HPI Narrative: This is a 37-year-old male presents to the emergency department worsening left- sided lumbar spasms. Patient states that the pain started about a week ago and he was prescribed tizanidine and a Medrol Dosepak by his orthopedist that using for his knee. He states that these medications did not help and reporting continued muscle spasms in his left side that do radiate to the right side. Denies any saddle paresthesias, urinary or bowel incontinence, nausea, vomiting, fevers, or any other concerning signs or symptoms. Related Data Previous Rx's Medication Instructions Recorded acyclovir 800 mg tablet 800 mg PO Q6H #30 tabs 07/10/21 epinephrine 0.3 mg/0.3 mL 0.3 mg (0.3 mL) IM SEE 04/08/22 injection, auto-injector INSTRUCTIONS ##4 diazepam 2 mg tablet See Rx Instructions PO BEDTIME PRN 12/03/22 muscle spasm #14 tabs cyclobenzaprine 10 mg tablet 10 mg PO TID #30 tabs 12/12/22 prednisone 20 mg tablet 20 mg PO BID 7 days #14 tabs 12/12/22 Allergies Allergy/AdvReac Type Severity Reaction Status Date / Time bee venom protein (honey bee) Allergy Severe anapylactic Verified 12/12/22 17:09 [BEE VENOM PROTEIN (HONEY BEE)] Review of Systems <Azael Sharma PA-C - Last Filed: 12/12/22 19:49> Review of Systems Narrative: GENERAL: Denies chills, fatigue, malaise, fever, sweats. HEENT: Denies sinus pain, ear pain, sore throat, difficulty swallowing, dizziness. RESPIRATORY: Denies dyspnea, cough, wheezing, hemoptysis, sputum. CARDIOVASCULAR: Denies chest pain, palpitations, orthopnea, edema, GASTROINTESTINAL: Denies nausea, vomiting, abdominal pain, diarrhea, constipation, melena. : Denies dysuria, frequency, incontinence, hematuria, urinary retention. MUSCULOSKELETAL: Reports left-sided back pain SKIN: Denies rash, skin lesions, or other NEUROLOGIC: Denies weakness, headache, numbness, change in speech, confusion, seizures, incoordination. PSYCHIATRIC: No concerning psychosocial issues. 12 point review of systems is negative except for those stated above Patient History <Azael Sharma PA-C - Last Filed: 12/12/22 19:49> Medical History (Updated 12/12/22 @ 17:06 by Azael Sharma PA-C) ADHD (attention deficit hyperactivity disorder) Bloating (2014) Chicken pox Chronic back pain (2010) Chronic headaches (2015) Frequent urination Migraines MRSA infection Prostatitis (2015) Tension headache Tinnitus Umbilical hernia Surgical History Anesthesia Status post knee surgery (04/2011) Status post knee surgery (07/2013) Status post knee surgery (2015) Family History Father Hypertension High cholesterol Hypothyroidism Afib Grandmother Cancer Mother High cholesterol Hypothyroidism Grandfather Stroke Family/Other Diabetes mellitus Family/Other Prostate cancer Social History marital status: household members: spouse and children occupational status: employed Smoking Status: Never smoker alcohol intake: never substance use type: does not use Smoking Status: Never smoker Substance Use Type: does not use Exam <Azael Sharma PA-C - Last Filed: 12/12/22 19:49> Narrative Exam Narrative: GENERAL: Well-developed patient, in mild distress. HEAD: Atraumatic. Normocephalic. EYES: Pupils equal round and reactive. Extraocular motions intact. No scleral icterus. No injection or drainage. ENT: Nose without bleeding, purulent drainage. Throat without erythema, tonsillar hypertrophy or exudate. Airway patent. NECK: Trachea midline. Non tender EXTREMITIES: No edema or joint tenderness. BACK: Tenderness to palpation to the bilateral lumbar paraspinal muscles NEURO: AOx3. SKIN: No rash or erythema of visible areas Initial Vital Signs Initial Vital Signs: Vital Signs Temperature 97.2 F L 12/12/22 12:45 Pulse Rate 97 H 12/12/22 12:45 Respiratory Rate 16 12/12/22 12:45 Blood Pressure 139/96 H 12/12/22 12:45 Pulse Oximetry 99 12/12/22 12:45 Oxygen Delivery Method Room Air 12/12/22 12:45 <Bhavna Benavidez DO - Last Filed: 12/13/22 08:23> Initial Vital Signs Initial Vital Signs: Vital Signs Temperature 97.2 F L 12/12/22 12:45 Pulse Rate 97 H 12/12/22 12:45 Respiratory Rate 16 12/12/22 12:45 Blood Pressure 139/96 H 12/12/22 12:45 Pulse Oximetry 99 12/12/22 12:45 Oxygen Delivery Method Room Air 12/12/22 12:45 Course <Azael Sharma PA-C - Last Filed: 12/12/22 19:49> Orders Ordered: Discontinued Medications Ketorolac Tromethamine (Ketorolac 30 Mg/Ml Vial) 15 mg IM NOW ONE Stop: 12/12/22 16:39 Last Admin: 12/12/22 17:04 Dose: 15 mg Documented By: KEN Vital Signs Vital signs: Vital Signs - 8 hr 12/12/22 12:45 Temperature 97.2 F L Pulse Rate 97 H Respiratory Rate 16 Blood Pressure 139/96 H Pulse Oximetry 99 Oxygen Delivery Method Room Air <DO Kirt Mendez Last Filed: 12/13/22 08:23> Orders Ordered: Discontinued Medications Ketorolac Tromethamine (Ketorolac 30 Mg/Ml Vial) 15 mg IM NOW ONE Stop: 12/12/22 16:39 Last Admin: 12/12/22 17:04 Dose: 15 mg Documented By: KEN Vital Signs Vital signs: Vital Signs - 8 hr 12/12/22 12:45 Temperature 97.2 F L Pulse Rate 97 H Respiratory Rate 16 Blood Pressure 139/96 H Pulse Oximetry 99 Oxygen Delivery Method Room Air MDM - Back Pain/Injury <Azael Sharma PA-C - Last Filed: 12/12/22 19:49> MDM Narrative Medical decision making narrative: MDM * differential diagnosis includes but not limited to vertebral fracture, lumbar lumbar strain, spinal cord compromise * Prior records reviewed: Patient has not been here for similar complaints in the past * My lab interpretation: None * My imgaing interpretation: None obtained during this visit the patient did have a recent lumbar x-ray which showed no evidence of any fractures but did show Mild degenerative disc disease at L4-5 and L5-S1. * Clinical Decision Rules/Scores evaluated: None * Independent discussions with: None ED Course: This is a 37-year-old male presenting with acute lumbar spasms suspected me muscular in nature. Recent x-ray shows no evidence of any kind of fractures. Patient denies any concerning symptoms such as saddle paresthesia urinary bowel incontinence, fevers, or anything else that would require further emergent imaging. Recommended follow up with his primary care provider for possible advanced imaging symptoms continue. Patient was given Toradol here in the emergency department and we prescribed cyclobenzaprine as well as prednisone on request. Shared Decision Making: Discussed plan with patient is comfortable with plan Social Considerations: None Disposition: Discharged to home Discharge Plan Departure Patient Disposition: Home Clinical Impression: Lumbar paraspinal muscle spasm Instructions: DI for Back Spasm Activity Restrictions/Additional Instructions: Thank you for coming to the [facility] Emergency Department today. As discussed I suspect you are having worsening lumbar spasm rather than any other more concerning pathology. Please return directly to the emergency department if you develop any numbness between your legs, urinary or bowel incontinence, or fevers. As discussed you may follow up with the primary care provider as they may be able to order more advanced imaging if the pain continues with symptoms worsen. I hope you feel better soon. Prescriptions: New cyclobenzaprine 10 mg tablet 10 mg PO TID Qty: 30 0RF prednisone 20 mg tablet 20 mg PO BID 7 Days Qty: 14 0RF No Action diazepam 2 mg tablet See Rx Instructions PO BEDTIME PRN (Reason: muscle spasm) Qty: 14 0RF Rx Instructions: Take one or two tablets at bedtime as needed for muscle spasm acyclovir 800 mg tablet 800 mg PO Q6H Qty: 30 1RF Rx Instructions: while awake epinephrine 0.3 mg/0.3 mL auto-injector 0.3 mg IM SEE INSTRUCTIONS Qty: 4 4RF Referrals: Zbigniew Wolf MD [Primary Care Provider] - Stand Alone Forms: Patient Portal/API, Work Release Note <Bhavna Benavidez DO - Last Filed: 12/13/22 08:23> Cosign ED Attending Chano Attestation: I was immediately available in the department for consultation. Documentation has been reviewed.
[2022-12-12] MEDS: KETOROLAC 30 MG/ML VIAL 15 MG IM (17:04)
== END 2022-12-12 17:16 | disposition home or self-care (01) ==
PROVIDERS: Emergency Provider Physician Assistant Medical; PCP Family Medicine
DX: M62.830 Muscle spasm of back (principal); R07.9 Chest pain, unspecified
CPT/HCPCS: 93005; 93010; 96372; 99283; J1885

== ENCOUNTER → 2023-08-04 15:30 | Outpatient (ROUT) | payer OTHER, SELFPAY ==
[2023-08-04 16:29] LABS: Vitamin D 25 Hydroxy (D3) 49.2 ng/mL (30.0-100.0)
== END ==
PROVIDERS: PCP Family Medicine; Visit Provider Family Medicine
DX: E55.9 Vitamin D deficiency, unspecified (principal)
CPT/HCPCS: 82306

== ENCOUNTER → 2024-02-04 15:57 | Outpatient (ROUT) | payer OTHER, SELFPAY ==
[2024-02-04 21:24] LABS: Vitamin D 25 Hydroxy (D3) 75.8 ng/mL (30.0-100.0)
== END ==
PROVIDERS: PCP Family Medicine; Visit Provider Family Medicine
DX: E55.9 Vitamin D deficiency, unspecified (principal)
CPT/HCPCS: 82306

== ENCOUNTER → 2024-02-12 10:02 | Outpatient (CLI) | payer OTHER, SELFPAY ==
--- NOTE | 2024-02-12 | DI.RAD.S_ITS ---
PROCEDURE: XR HIP W PEL IF DONE RT 2V INDICATIONS: PAIN POST SURGERY TECHNIQUE: 2 views of the hip were acquired. COMPARISON: None. FINDINGS: Bones: Plate/screw fixation in the right ilium. Minimal hip joint space narrowing. No acute displaced fracture or dislocation. Soft tissues: No suspicious calcifications. IMPRESSION: Postsurgical changes in the right iliac bone. Minimal hip joint space narrowing. If there is further concern, consider cross-sectional imaging. Dictated by: Oscar Luevano M.D. on 02/12/2024 at 12:59 Approved by: Oscar Luevano M.D. on 02/12/2024 at 12:59
== END ==
PROVIDERS: PCP Family Medicine; Referring Provider Orthopaedic Surgery; Visit Provider Orthopaedic Surgery
DX: G89.18 Other acute postprocedural pain (principal); Z98.890 Other specified postprocedural states
CPT/HCPCS: 73502

== ENCOUNTER 2024-04-27 13:45 | Day surgery (SDC) | payer OTHER, SELFPAY ==
[2024-03-30 13:47] VITALS: BMI 38.9
--- NOTE | 2024-04-26 08:45 | P.HP_ITS ---
History of Present Illness History of Present Illness Date Patient Seen: 04/27/24 Time Patient Seen: 14:47 Chief complaint: Lap R inguinal hernia repair Narrative: 38-year-old man here for elective right inguinal hernia repair. No interval change in health. [facility] Medical History Tension headache Umbilical hernia Migraines Chronic headaches (2015) ADHD (attention deficit hyperactivity disorder) Chronic back pain (2010) MRSA infection Chicken pox Tinnitus Bloating (2014) Prostatitis (2015) Frequent urination Surgical History Status post knee surgery (2015) Anesthesia Status post knee surgery (07/2013) Status post knee surgery (04/2011) Family History Father Hypertension High cholesterol Hypothyroidism Afib Grandmother Cancer Mother High cholesterol Hypothyroidism Grandfather Stroke Family/Other Diabetes mellitus Family/Other Prostate cancer Aunt Stroke Social History marital status: household members: spouse and children occupational status: employed Smoking Status: Never smoker alcohol intake: never substance use type: does not use Meds Home Medications and Allergies Home Medications Medication Instructions Recorded Confirmed Type epinephrine 0.3 mg/0.3 mL 0.3 mg (0.3 mL) IM SEE 04/08/22 04/27/24 Rx injection, auto-injector INSTRUCTIONS ##4 Allergies Allergy/AdvReac Type Severity Reaction Status Date / Time bee venom protein (honey bee) Allergy Severe anapylactic Verified 04/27/24 14:26 [BEE VENOM PROTEIN (HONEY BEE)] acetaminophen [From Vicodin] AdvReac Hallucinati Verified 04/27/24 14:33 ng hydrocodone [From Vicodin] AdvReac Hallucinati Verified 04/27/24 14:33 ng Exam Narrative Exam Narrative: General adult man alert oriented no acute distress Chest nonlabored respiration Abdomen right inguinal hernia marked with my initials Extremities warm well perfused Assessment & Plan Assessment & Plan narrative: 38-year-old man here for elective laparoscopic right inguinal hernia repair. Overview of the operation was again discussed including the risks benefits and alternatives. His questions have been answered. Following discussion he provides his written and verbal consent to proceed. Time-Based Coding :: [TOTAL MINUTES] spent with patient and on the chart (including review of chart, obtaining history, exam, reviewing outside data, placing orders, documenting exam and treatment plan, and counseling patient) on [DATE].
[2024-04-27] MEDS: ACETAMINOPHEN 325 MG TABLET 975 MG PO (14:01)
[2024-04-27] MEDS: LACTATED RINGERS 1,000 ML 42 ML IV (14:03)
[2024-04-27 14:04] VITALS: BP 132/85; PULSE 91; RESP 18; TEMP 36.6; O2SAT 96; BMI 38.2
[2024-04-27] MEDS: CEFAZOLIN VIAL 1 GM in SODIUM CHLORIDE 0.9% 100 ML IV (15:10)
[2024-04-27] MEDS: CEFAZOLIN 2 GM/100 ML PREMIX 100 ML IV (15:10)
--- NOTE | 2024-04-27 15:16 | SUR.OPER ---
Supine on padded OR bed, head on pillow, arms padded and tucked at sides, legs uncrossed, safety belt at thigh, tape over blanket over lower legs .
[2024-04-27] MEDS: BUPIVACAINE 0.25% (PF) VIAL 30 ML INJ (15:27)
--- NOTE | 2024-04-27 15:50 | PM.OP.1 ---
Operative Date/Time/Diagnoses Date of procedure: 04/27/24 Time of procedure: 15:50 Pre-op diagnosis: Right inguinal hernia Post-op diagnosis: same Procedure & Clinicians Procedure: Laparoscopic repair of right inguinal hernia Same procedure as scheduled: Yes Indications: Symptomatic reducible right inguinal hernia Surgeon: Yosi Mcconnell Electrical Panel Builder: Dustin Maldonado Anesthesia Type: General Operative Notes Findings: Direct floor defect right only Specimen(s): none sent Estimated Blood Loss (mL): 20 Procedure in detail: The patient was brought to the operating room and placed supine on the table. Bilateral sequential compression devices were applied. General anesthesia was induced and they were intubated with an endotracheal tube. A mao cath was placed in sterile fashion. They received 3 g Ancef prior to skin incision. They were prepped and draped in sterile fashion. A time out was performed to ensure the correct patient, procedure and necessary equipment within the operating room. The skin was infiltrated with 0.25% bupivicaine. A 1 cm supra umbilical midline incision was made. The fascia was sharply incised and the abdomen entered traumatically. A 10mm balloon port was placed and pneumoperitoneum was established at 15mm Hg. Inspection of the abdomen demonstrated no evidence of injury upon entry. Two 5 mm ports were then placed under direct visualization in the right and left lower quadrant lateral to the rectus muscle. A right direct hernia defect was observed. The peritoneum 4 cm superior to the deep inguinal ring between the medial umbilical ligament and the anterior superior iliac spine was incised. The medial preperitoneal dissection was carried out into the space of Retzius bluntly, the bladder was swept inferiorly, the pubis and Tj's ligament were identified. Next attention was turned towards the lateral aspect of the peritoneal flap. The preperitoneal fat with the testicular vessels was carefully dissected off the inferior peritoneal flap. The cord was carefully inspected there was no evidence of indirect defect or cord lipoma. The attachements to the direct hernia sac were divided and the direct defect was reduced. A large Bard 3D Max mesh was then placed into the abdomen and positioned such that the myopectineal orifice was completely covered with good overlap on all sides. The peritoneal flap was then repositioned back to its original position and a running V lock suture was used to close the peritoneum such that no bowel could herniate into the preperitoneal space. The area was examined for hemostasis. The 5mm trocars were removed under direct visualization and pneumoperitoneum was deflated through the umbilical trocar, The fascia at the umbilicus was closed with 0-Vicryl in figure of 8 fashion, skin closed with 4-0 Monocyl followed by Dermabond. The sponge and instrument count at the end of the case was correct. Both testicles were entirely within the scrotum at the end of the case. The patient emerged from anesthsia was extubated and transferred to recovery in stable condition. Complications: none Post-operative Condition: stable Disposition: same day surgery
[2024-04-27 16:02] VITALS: BP 144/96; PULSE 77; RESP 20; TEMP 36.6; O2SAT 96
[2024-04-27 16:06] VITALS: BP 142/96; PULSE 78; RESP 21; TEMP 36.4; O2SAT 95
[2024-04-27 16:11] VITALS: BP 143/90; PULSE 79; RESP 14; TEMP 36.6; O2SAT 99
[2024-04-27] MEDS: hydrOXYzine 50 MG/ML INJ 25 MG IM (16:13)
[2024-04-27] MEDS: ONDANSETRON 4 MG/2 ML INJ IV (16:13)
[2024-04-27 16:16] VITALS: BP 142/95; PULSE 79; RESP 14; TEMP 36.4; O2SAT 99
[2024-04-27] MEDS: OXYCODONE IR 10 MG TABLET PO (16:18)
[2024-04-27 16:21] VITALS: BP 149/97; PULSE 74; RESP 12; TEMP 36.5; O2SAT 97
[2024-04-27] MEDS: OXYCODONE IR 5 MG TABLET PO (16:56)
== END 2024-04-27 17:30 | disposition home or self-care (01) ==
PROVIDERS: PCP Family Medicine; Referring Provider Surgery; Visit Provider Surgery
PROC: 0YQ54ZZ Repair Right Inguinal Region, Percutaneous Endoscopic Approach (ICD-10-PCS; CPT 49650; principal; 2024-04-27 15:45)
DX: K40.90 Unilateral inguinal hernia, without obstruction or gangrene, not specified as recurrent (principal)
CPT/HCPCS: 49650; J0690; J1100; J1170; J2405; J2704; J3410

== ENCOUNTER → 2024-06-21 11:14 | Outpatient (CLI) | payer OTHER, SELFPAY ==
--- NOTE | 2024-06-21 11:15 | DI.CT.S_ITS ---
PROCEDURE: CT CHEST ABD PEL W CON INDICATIONS: r groin pain sp hernia repair 1 month ago TECHNIQUE: After the administration of intravenous contrast, 5 mm thick sections acquired from the lung apices to the symphysis. 5 mm coronal and sagittal reformats were performed, with additional 7 mm MIP reformats through the lungs. For radiation dose reduction, the following was used: automated exposure control, adjustment of mA and/or kV according to patient size. COMPARISON: [facility], CT, CT ABDOMEN WO CON, 08/18/2018, 9:00. FINDINGS: Image quality: Diagnostic. CHEST: Lungs and Pleura: 5 mm perifissural nodule within the anterior left lower lobe abutting the major fissure (series 6, image 219) and a smaller perifissural nodule more superiorly (series 6, image 176). No suspicious pulmonary nodules or masses. No focal airspace opacity or consolidation. No evidence of pneumothorax or pleural effusion. Lower Neck: No enlarged lymph nodes. Thyroid: No thyroid nodules which require sonographic follow up, per consensus guidelines. Axillae: No enlarged lymph nodes. Chest Wall: Unremarkable. Heart: Heart size is normal. No pericardial effusion. Thoracic Vessels: The aorta and pulmonary arteries demonstrate normal size. Mediastinum and Tati: No enlarged lymph nodes. Esophagus: No wall thickening. No hiatal hernia. ABDOMEN: Liver: Liver demonstrates diffusely decreased attenuation suggestive of steatosis. No focal mass lesion. Gallbladder: No radiopaque gallstones or wall thickening. Biliary ducts: No biliary dilation. Pancreas: No focal mass. No pancreatic duct dilatation or inflammatory changes. Spleen: Size is within normal limits. Adrenal Glands: No adrenal nodules. Kidneys and Ureters: No hydronephrosis. No solid mass. No complex renal cystic lesion which requires follow up. Stomach and Bowel: Small large bowel appear normal in caliber without evidence of bowel obstruction. Diverticulosis of the sigmoid colon without evidence of diverticulitis. Normal-appearing appendix. Peritoneum: No abnormal intraperitoneal fluid. No free air. Ventral Wall: No significant ventral hernia. Abdominal Nodes: No retroperitoneal or mesenteric adenopathy by size criteria. Vessels: Aorta and inferior vena cava are normal in size. PELVIS: Pelvic Organs: Unremarkable. Bladder: No bladder wall thickening, accounting for underdistention. Pelvic Nodes: No enlarged lymph nodes. Miscellaneous: Mild degree of soft tissue thickening within the right iliac fossa likely postsurgical changes from prior inguinal hernia repair. Bones: No aggressive osseous abnormality. Postsurgical changes involving the right anterior superior iliac crest from prior osteotomy. IMPRESSION: No acute abnormality within the chest, abdomen or pelvis. Dictated by: Farshad Bradford M.D. on 06/21/2024 at 13:20 Approved by: Farshad Bradford M.D. on 06/21/2024 at 13:58
== END ==
LOC: CT 11:14
PROVIDERS: PCP Family Medicine; Referring Provider Surgery; Visit Provider Surgery
DX: R10.31 Right lower quadrant pain (principal)
CPT/HCPCS: 71260; 74177; Q9967

== ENCOUNTER → 2024-10-05 07:29 | Outpatient (CLI) | payer OTHER, SELFPAY ==
--- NOTE | 2024-10-05 07:31 | DI.US.S_ITS ---
PROCEDURE: US SCROTUM INDICATIONS: R TESTICLE PAIN / RLQ PAIN TECHNIQUE: Real-time scanning was performed of the scrotum and testicles, with image documentation. Color and pulse Doppler interrogation was performed of both testicles. COMPARISON: [facility], CT, CT CHEST ABD PEL W CON, 06/21/2024, 11:34. FINDINGS: Right: Testicle is normal in size at 5.2 x 3.5 x 2.9 cm, and homogenous in echotexture. Epididymis is normal in overall size and morphology. Small hydrocele. No varicoceles. Overlying scrotal skin is normal in thickness. Left: Testicle is normal in size at 4.2 x 3.4 x 2.5 cm, and homogeneous in echotexture. Epididymis is normal in overall size and morphology. Small hydrocele. No varicoceles. Overlying scrotal skin is normal in thickness. Doppler: Color and pulse Doppler demonstrate normal and symmetric arterial flow in both testicles. No right inguinal hernia or mass seen. IMPRESSION: 1. No hyperemia to suggest epididymitis. No torsion. 2. No testicular mass. 3. No varicocele. No right inguinal hernia. Dictated by: Dion Pelletier M.D. on 10/05/2024 at 8:29 Approved by: Dion Pelletier M.D. on 10/05/2024 at 8:32
== END ==
LOC: US 07:31
PROVIDERS: PCP Family Medicine; Referring Provider Family Medicine; Visit Provider Family Medicine
DX: N50.811 Right testicular pain (principal); R10.31 Right lower quadrant pain
CPT/HCPCS: 76870; 93975

== ENCOUNTER → 2025-06-18 16:35 | Outpatient (CLI) | payer OTHER, SELFPAY | PROVIDERS: PCP Family Medicine; Visit Provider Chiropractor | DX: J02.9 Acute pharyngitis, unspecified (principal) | CPT/HCPCS: 87070 ==